=== PATIENT | male | born 1965 | race African-American/Black ===

== ENCOUNTER 2017-03-22 05:58 | Emergency (ER) | payer OTHER ==
--- NOTE | 2017-03-22 06:12 | PDOC ---
Medical Decision Making - Medical Decision Making 03/22/17 06:12 agree with care from [facility] [place] *DC/Admit/Observation/Transfer Diagnosis at time of Disposition: Rash and nonspecific skin eruption - Discharge Dispostion Disposition: HOME Condition at time of disposition: Good - Prescriptions Prescriptions: Prednisone [Deltasone -] 40 mg PO DAILY #14 tablet Famotidine [Pepcid] 40 mg PO BID #14 tablet - Patient Instructions Printed Discharge Instructions: DI for Rash Additional Instructions: Take medications as prescribed. Return if symptoms worsen or any concerns for further evaluation. Follow up with Dr. Monroe [phone] Stein [phone]. Call either Doctor to schedule appointment. Print Language: [place]
[2017-03-22 06:24] VITALS: BP 146/99; PULSE 58; TEMP 97.6; BMI 26.6
--- NOTE | 2017-03-22 06:27 | PDOC ---
History of Present Illness - General Chief Complaint: Rash Stated Complaint: RASH Time Seen by Provider: 03/22/17 06:00 History Source: Patient Exam Limitations: No Limitations - History of Present Illness Initial Comments: 03/22/17 06:22 51yo Male patient with no significant past medical history presents to ED c/o rash to trunk and waist line. Patient states he noticed the rash one week ago, after changing his detergent. He reports OTC Hydrocortisone use with good relief , however, rash continues to return. He denies fever, cough, congestion, diff breathing, or any other complaints at this time. Timing/Duration: reports: week Severity: Yes: mild Location: reports: torso Respiratory Risk Factors: denies: no cause identified, exposure to illness, exposure to allergen, foods, insect bite, insect sting, medications, pollen, soaps, other Modifying Factors: improves with: topical steriods Associated Symptoms: denies: denies symptoms, blisters, change in skin texture, edema, fever, flushing, headache, hives, jaundice, malaise, nasal congestion, numbness, pallor, paresthesia, petechiae, rash, sore throat, swelling/mass/lumps , tingling, other Past History - Travel Traveled outside of the country in the last 30 days: No Close contact w/someone who was outside of country & ill: No - Past Medical History Allergies/Adverse Reactions: Allergies Allergy/AdvReac Type Severity Reaction Status Date / Time No Known Allergies Allergy Verified 03/22/17 06:15 Home Medications: Ambulatory Orders Famotidine [Pepcid] 40 mg PO BID #14 tablet 03/22/17 Prednisone [Deltasone -] 40 mg PO DAILY #14 tablet 03/22/17 Other medical history: Pt denies - Psycho/Social/Smoking Cessation Hx Suicidal Ideation: No Smoking History: Never smoked Have you smoked in the past 12 months: No Information on smoking cessation initiated: No Hx Alcohol Use: No Drug/Substance Use Hx: Yes (Marijuana) Substance Use Type: Marijuana Review of Systems - Review of Systems Able to Perform ROS?: Yes Is the patient limited Chinese proficient: No Constitutional: No: Chills, Fever Integumentary: Yes: Rash All Other Systems: Reviewed and Negative *Physical Exam - Vital Signs Last Vital Signs Temp Pulse Resp BP Pulse Ox 97.6 F 58 L 18 146/99 100 03/22/17 06:16 03/22/17 06:16 03/22/17 06:16 03/22/17 06:16 03/22/17 06:16 - Physical Exam General Appearance: Yes: Nourished, Appropriately Dressed. No: Apparent Distress, Mild Distress, Moderate Distress, Severe Distress HEENT: positive: EOMI, EMILY, Normal ENT Inspection, Normal Voice, Symmetrical, TMs Normal, Pharynx Normal. negative: Pharyngeal Erythema, Tonsillar Exudate, Tonsillar Erythema, Nasal Congestion, Rhinorrhea, Sinus Tenderness Neck: positive: Trachea midline, Normal Thyroid, Supple. negative: Stridor, Lymphadenopathy (R), Lymphadenopathy (L), Tender lateral, Tender midline Respiratory/Chest: positive: Lungs Clear, Normal Breath Sounds. negative: Chest Tender, Respiratory Distress, Accessory Muscle Use, Labored Respiration, Rapid RR, Stridor, Wheezing Cardiovascular: positive: Regular Rhythm, Regular Rate Musculoskeletal: positive: Normal Inspection. negative: CVA Tenderness Extremity: positive: Normal Capillary Refill, Normal Inspection, Normal Range of Motion. negative: Pedal Edema, Swelling, Calf Tenderness, Erythema, Inflammation Integumentary: positive: Normal Color, Dry, Warm, Rash (Faint macular-papular rash noted to right arm.) Neurologic: positive: game room attendant II-XII NML intact, Fully Oriented, Alert, Normal Mood/ Affect, Normal Response, Motor Strength 5/5 *DC/Admit/Observation/Transfer Diagnosis at time of Disposition: Rash and nonspecific skin eruption - Discharge Dispostion Disposition: HOME Condition at time of disposition: Stable Admit: No - Prescriptions Prescriptions: Prednisone [Deltasone -] 40 mg PO DAILY #14 tablet Famotidine [Pepcid] 40 mg PO BID #14 tablet - Patient Instructions Printed Discharge Instructions: DI for Rash Additional Instructions: Take medications as prescribed. Return if symptoms worsen or any concerns for further evaluation. Follow up with Dr. Monroe [phone] Stein . Call either Doctor to schedule appointment. Print Language: PORTUGUESE
== END 2017-03-22 06:44 | disposition home or self-care (01) ==
LOC: JER 05:58
DX: R21 Rash and other nonspecific skin eruption (principal)
CPT/HCPCS: 99281-25